=== PATIENT | female | born 1990 | race Caucasian/White ===

== ENCOUNTER → 2018-04-11 15:00 | Outpatient (CLI) | payer BC, SELFPAY ==
[2018-04-11 15:06] LABS: Adenovirus F 40/41, stool Not Detected (NotDetected); Astrovirus Not Detected (NotDetected); Campylobacter Not Detected (NotDetected); Clostridium Difficile A/B, PCR Not Detected (NotDetected); Cryptosporidium Not Detected (NotDetected); Cyclospora Cayetanesis Not Detected (NotDetected); Entamoeba histolytica Not Detected (NotDetected); Enteroaggregative E coli Not Detected (NotDetected); Enteropathogenic E coli Not Detected (NotDetected); Enterotoxigenic E coli Not Detected (NotDetected); Giardia lamblia Not Detected (NotDetected); Norovirus Not Detected (NotDetected); Plesimonas Shigalloides, PCR Not Detected (NotDetected); Salmonella, PCR Not Detected (NotDetected); Sapovirus Not Detected (NotDetected); Shiga-like toxin E coli Not Detected (NotDetected); Shigella Enterovasive E coli Not Detected (NotDetected); Vibrio Cholerae Not Detected (NotDetected); Vibrio, PCR Not Detected (NotDetected); Yersinia Entercolitica, PCR Not Detected (NotDetected)
[2018-04-11 18:41] LABS: Rotavirus A Detected (NotDetected)
== END ==
PROVIDERS: Visit Provider Emergency Medicine
DX: R19.7 Diarrhea, unspecified (principal)
CPT/HCPCS: 87507

== ENCOUNTER → 2019-12-24 11:22 | Outpatient (CLI) | payer BC, SELFPAY ==
[2019-12-24 12:06] LABS: Basophils # 0.1 K/mm3 (0-0.2); Basophils % 0.4 % (0.1-2.0); Eosinophils # 0.1 K/mm3 (0.0-0.4); Eosinophils % 1.1 % (0.1-12.0); Hematocrit 38.5 % (37.0-47.0); Hemoglobin 12.7 g/dL (12.2-16.2); Lymphocytes # 3.6 K/mm3 (0.7-4.5); Lymphocytes % 34.2 % (10-50); Mean Corpuscular Volume 87.9 fl (81-99); Mean Platelet Volume 8.4 fl (7.4-10.4); Monocytes # 0.5 K/mm3 (0.1-1.0); Monocytes % 5.1 % (1.7-9.3); Neutrophils # 6.2 K/mm3 (1.8-7.8); Neutrophils % 59.2 % (37.0-80.0); Platelet Count 269 K/mm3 (142-424); Red Blood Count 4.38 M/mm3 (4.20-5.40); Red Cell Distribution Width 13.7 % (11.5-17.5); White Blood Count 10.5 K/mm3 (4.8-10.8)
== END ==
PROVIDERS: PCP Family Medicine; Visit Provider Physician Assistant
DX: Z03.818 Encounter for observation for suspected exposure to other biological agents ruled out (principal)
CPT/HCPCS: 36415; 85025; U0003

== ENCOUNTER → 2021-04-19 16:19 | Outpatient (CLI) | payer BC, SELFPAY ==
[2021-04-19 17:01] LABS: Adenovirus,PCR Not Detected (NotDetected); Bordetella Pertussis Not Detected (NotDetected); Chlamydophila Pneumoniae, PCR Not Detected (NotDetected); Coronavirus 19, PCR Not Detected (NotDetected); Coronavirus 229E Not Detected (NotDetected); Coronavirus NL63 Not Detected (NotDetected); Coronavirus OC43 Not Detected (NotDetected); Coronovirus HKU1,PCR Not Detected (NotDetected); Human Metapneumovirus Not Detected (NotDetected); Influenza A, PCR Not Detected (NotDetected); Influenza AH1, 2009 Not Detected (NotDetected); Influenza AH1, PCR Not Detected (NotDetected); Influenza AH3,PCR Not Detected (NotDetected); Influenza B, PCR Not Detected (NotDetected); Mycoplasma Pneumoniae, PCR Not Detected (NotDetected); Parainfluenza 1, PCR Not Detected (NotDetected); Parainfluenza 2, PCR Not Detected (NotDetected); Parainfluenza 3, PCR Not Detected (NotDetected); Parainfluenza 4, PCR Not Detected (NotDetected); Respiratory Syncytial Virus Not Detected (NotDetected); Rhinovirus/Enterovirus Not Detected (NotDetected)
[2021-04-19 17:29] LABS: Basophils # 0.1 K/mm3 (0-0.2); Basophils % 0.4 % (0.1-2.0); Eosinophils # 0.1 K/mm3 (0.0-0.4); Eosinophils % 0.6 % (0.1-12.0); Hematocrit 43.2 % (37.0-47.0); Hemoglobin 14.5 g/dL (12.2-16.2); Lymphocytes # 2.8 K/mm3 (0.7-4.5); Lymphocytes % 12.5 % (10-50); Mean Corpuscular HGB Conc 33.6 g/dL (31.8-35.4); Mean Corpuscular Hemoglobin 29.7 pg (27.0-31.2); Mean Corpuscular Volume 88.4 fl (81-99); Mean Platelet Volume 8.9 fl (7.4-10.4); Monocytes # 0.6 K/mm3 (0.1-1.0); Monocytes % 2.6 % (1.7-9.3); Neutrophils # 18.6 K/mm3 (1.8-7.8); Neutrophils % 83.8 % (37.0-80.0); Platelet Count 297 K/mm3 (142-424); Red Blood Count 4.89 M/mm3 (4.20-5.40); Red Cell Distribution Width 13.5 % (11.5-17.5); White Blood Count 22.1 K/mm3 (4.8-10.8)
[2021-04-19 17:34] LABS: MANUAL DIFFERENTIAL MANUAL DIFFERENTIAL (MANUAL DIFF)
[2021-04-19 20:44] LABS: Eosinophils % 1 % (0-3); Lymphocytes % 15 % (10-50); Monocytes % 5 % (2-9); Neutrophils % 77 % (42-76); Platelet Estimate Normal; Total Cells Counted 100
== END ==
PROVIDERS: PCP Nurse Practitioner Family; Visit Provider Physician Assistant
DX: Z20.822 Contact with and (suspected) exposure to COVID-19 (principal); D72.829 Elevated white blood cell count, unspecified
CPT/HCPCS: 36415; 85007; 85025; 87581; 87632; 87798; C9803; U0003; U0005

== ENCOUNTER 2021-05-24 08:58 | Emergency (ER) | payer BC, SELFPAY ==
[2021-05-24 09:05] VITALS: BP 112/66; PULSE 77; RESP 14; TEMP 37.1; O2SAT 99; BMI 36.3
[2021-05-24 09:14] VITALS: BP 122/66; PULSE 77; RESP 16; TEMP 37.1
--- NOTE | 2021-05-24 09:15 | HMH.EDUTC ---
[facility] [place] Clinical Impression: Strep throat Disposition: Home, Self-Care Condition on Discharge: Good Instructions: Sore Throat, Strep Throat (Alternative Therapy) Additional Instructions: *Monitor Temp, Over the counter Motrin or Tylenol as directed/as needed Tylenol every 4 hours and Motrin every 6 hours (as long as your family doctor has told you that you can take it) for fever or pain. and straight to ER if unable to lower temp less than 101.0 after medication given *Warm salt water gargles may help to soothe the throat *Throat Lozenges *Warm fluids like tea with honey may help to soothe the throat *Sleep elevated *Humidifier/Vaporizer *If you did not take Penicillin shot or was unable to, start taking antibiotic immediately and make sure that you take it for the FULL length of time although you should start to feel better in 24-48 hours *change toothbrush and toothpaste 24-48 hours after starting to take antibiotics so you do not reinfect yourself Monitor Temp. Tylenol and/or Ibuprofen as needed. ER if fever is no less than 101 despite alternating Tylenol and Ibuprofen * Encourage fluids, water, Gatorade, powerade, pedialyte if /toddler/or child *Cold fluids, popsicles and ice cream may feel good on his throat Follow up IMMEDIATELY for new or worsening symptoms or no Noticeable improvement over the next 48-72 hours. 911 for difficulty breathing or swallowing You were tested for today for COVID19 your test result should be back in the next 24-48 hours, you may check your results on the [facility] My Health Portal if you have trouble logging on you may call support to help you You was given a handout with instructions for Self Quarantine and Self isolation for while you wait on test results and what to do if they are positive If you are positive the Health Dept will be contacting you also Make sure to take your Vitamins Vit. C Vit D and Zinc if you can take them Prescriptions: Amoxicillin [Amoxicillin 875MG Tab] 875 mg PO Q12H #20 tab Transmission Status: Pending to [id number] Referrals: Tristen Stringer MD [Primary Care Provider] - Forms: Work/School Release Medical Decision Making - Stephen Inquiry Pt receiving controlled substance: No Stephen was queried for this patient: No Vital Signs: 05/24/21 09:05 Temperature 98.7 F Temperature Source Oral Pulse Rate [Left] 77 Respiratory Rate 14 Blood Pressure [Right Arm] 112/66 Blood Pressure Mean [Right Arm] 81 02 Sat by Pulse Oximetry 99 - Lab Data Lab results reviewed: Yes: I reviewed the patient's lab results. Medical Decision Narrative: Patient state that she is allergic to Cefaclor but has taken amoxicillin in the past without reactions or complications [facility] [place] - General Stated complaint: sore throat, cough, BENAVIDES Time Seen by Provider: 05/24/21 09:15 Mode of Arrival: Ambulatory Source of Information: Patient Limitations: No Limitations Description of Symptoms (Recalled from Triage Doc. by RN): pt c/o fatigue, scratchy throat, BENAVIDES, sneezing, and a sore neck. pt states her daughter had strep last week. HEENT Symptoms (Recalled from RN notes): Yes Resp Symptoms (Recalled from RN notes): No Skin Symptoms (Recalled from RN notes): No MS Symptoms (Recalled from RN notes): No Functional Status (Recalled from RN notes): wnl - History of Present Illness Provider Complaint: Patient state that she has been feeling tired and achy along with runny nose and scratchy throat State that daughter had strep throat last week so she came in to get checked out - Related Data Home Medications Medication Instructions Recorded Confirmed Fluoxetine HCl [Prozac 20mg 20 mg PO DAILY 04/10/18 04/10/18 Capsule] Levocetirizine Dihydrochloride 5 mg PO DAILY 04/10/18 04/10/18 [Xyzal] desogestreL-ethinyl estradioL 1 tab PO DAILY 04/10/18 04/10/18 [Enskyce 28 Tablet] Previous Rx's Medication Instructions Recorded Loperamide HCl [
[2021-05-24 09:35] LABS: UTC Strep Screen (Rapid) Positive (Negative)
== END 2021-05-24 09:49 | disposition home or self-care (01) ==
PROVIDERS: Emergency Provider Nurse Practitioner; PCP Family Medicine
DX: J02.0 Streptococcal pharyngitis (principal)
CPT/HCPCS: 87880; 99203; C9803; G0463; U0003; U0005

== ENCOUNTER → 2021-05-29 13:03 | Outpatient (CLI) | payer BC, SELFPAY | PROVIDERS: PCP Family Medicine; Visit Provider Family Medicine | DX: U07.1 COVID-19 (principal) | CPT/HCPCS: C9803; U0003; U0005 ==

== ENCOUNTER 2021-06-08 09:02 | Emergency (ER) | payer BC, SELFPAY ==
[2021-06-08 09:10] VITALS: BP 115/79; PULSE 74; RESP 18; TEMP 36.4; O2SAT 97; BMI 37.1
--- NOTE | 2021-06-08 09:33 | HMH.EDUTC ---
[facility] [place] Disposition Clinical Impression: Rash Disposition: Home, Self-Care Condition on Discharge: Good Instructions: DI for Rash, Hydroxyzine Additional Instructions: Oatmeal baths may help with rash and itching Over the counter pepcid may help with rash Continue to take medrol dose pack Return if needed Straight to ER if any life threatening symptoms Follow up with Family Doctor if symptoms continue or worsen Prescriptions: hydrOXYzine HCL [Hydroxyzine HCl] 25 mg PO Q8HP PRN #15 tab PRN Reason: Itching Transmission Status: Pending to [id number] Referrals: Tristen Stringer MD [Primary Care Provider] - Time of Disposition: 09:53 Medical Decision Making - Stephen Inquiry Pt receiving controlled substance: No Stephen was queried for this patient: No Vital Signs: 06/08/21 09:10 Temperature 97.5 F L Temperature Source Oral Pulse Rate [Right Brachial] 74 Respiratory Rate 18 Blood Pressure [Right Arm] 115/79 Blood Pressure Mean [Right Arm] 91 Blood Pressure Source [Right Arm] Automatic Cuff Blood Pressure Position [Right Arm] Sitting 02 Sat by Pulse Oximetry 97 Oxygen Delivery Method Room Air - Lab Data Lab results reviewed: Yes: I reviewed the patient's lab results. Lab Results 06/08/21 09:29: Tst Clinic Negative [facility] [place] HPI - General Stated complaint: rash Time Seen by Provider: 06/08/21 09:33 Mode of Arrival: Ambulatory Source of Information: Patient Limitations: No Limitations Description of Symptoms (Recalled from Triage Doc. by RN): PATIENT C/O ITCHY, RED RASH ALL OVER BODY X 2 DAYS. SHE STATES THE ITCHINESS HAS CAUSED HER NOT TO SLEEP WELL. SHE IS CURRENTLY ON THIRD DAY OF STEROID PACK PRESCRIBED BY HER PCP. SHE WAS DIAGNOSED WITH COVID LAST SATURDAY, BUT STATES ALL OF HER SYMPTOMS HAVE SUBSIDED HEENT Symptoms (Recalled from RN notes): No Resp Symptoms (Recalled from RN notes): No Skin Symptoms (Recalled from RN notes): Yes MS Symptoms (Recalled from RN notes): No Functional Status (Recalled from RN notes): WNL - History of Present Illness Provider Complaint: Patient states that she had COVID last week States that she has been having rash all over her body States that she had a telehealth visit with her PCP and they prescribed her a medrol pack and it has helped some but she is still having itching and rash returns in the evenings so she came in today to see if they could get something else to help - Related Data Home Medications Medication Instructions Recorded Confirmed Fluoxetine HCl [Prozac 20mg 20 mg PO DAILY 04/10/18 04/10/18 Capsule] Levocetirizine Dihydrochloride 5 mg PO DAILY 04/10/18 04/10/18 [Xyzal] desogestreL-ethinyl estradioL 1 tab PO DAILY 04/10/18 04/10/18 [Enskyce 28 Tablet] Sertraline HCl 100 mg PO DAILY 06/08/21 06/08/21 Previous Rx's Medication Instructions Recorded Loperamide HCl [Loperamide] 2 mg PO TID PRN #4 tab 04/10/18 Amoxicillin [Amoxicillin 875MG 875 mg PO Q12H #20 tab 05/24/21 Tab] hydrOXYzine HCL [Hydroxyzine HCl] 25 mg PO Q8HP PRN #15 tab 06/08/21 Allergies Allergy/AdvReac Type Severity Reaction Status Date / Time cefaclor [From Ceclor] Allergy Intermediate Verified 04/10/18 12:17 - Worker's Comp Is this a Worker's Comp case?: No H History - Hepatitis A Screen Drug use history?: No High risk sexual behaviors?: No History of sexually transmitted infection?: No Currently employed?: No Childcare worker?: No Do you have indoor plumbing?: Yes Do you have electricity?: Yes Attestation statement:: This patient has been screened for Hepatitis A risk factors. I have reviewed the patient's past medical history: Yes Laterality Cases: Bilateral: Myringotomy (Ear Tubes), Tonsillectomy - Social History Alcohol Intake: never Occupational Status: other ROS Obtained: Yes All systems reviewed & no additional complaints, Yes Systems reviewed as appropriate & no additional complaints - Constitu
[2021-06-08 09:41] LABS: UTC Pregnancy Test, Urine Negative (Negative)
[2021-06-08 09:57] VITALS: BP 115/79; PULSE 74; RESP 18; TEMP 36.4; O2SAT 97
== END 2021-06-08 10:03 | disposition home or self-care (01) ==
PROVIDERS: Emergency Provider Nurse Practitioner; PCP Family Medicine
DX: R21 Rash and other nonspecific skin eruption (principal); Z86.16 Personal history of COVID-19
CPT/HCPCS: 81025; 99202; G0463

== ENCOUNTER → 2021-06-21 11:57 | Outpatient (CLI) | payer BC, SELFPAY ==
[2021-06-21 14:30] LABS: Basophils % 0.3 % (0.1-2.0); Eosinophils # 0.1 K/mm3 (0.0-0.4); Eosinophils % 0.9 % (0.1-12.0); Hematocrit 41.1 % (37.0-47.0); Lymphocytes # 2.6 K/mm3 (0.7-4.5); Lymphocytes % 24.6 % (10-50); Mean Corpuscular HGB Conc 31.6 g/dL (31.8-35.4); Mean Corpuscular Hemoglobin 29.6 pg (27.0-31.2); Mean Corpuscular Volume 93.5 fl (81-99); Monocytes # 0.5 K/mm3 (0.1-1.0); Monocytes % 4.6 % (1.7-9.3); Neutrophils # 7.5 K/mm3 (1.8-7.8); Neutrophils % 69.7 % (37.0-80.0); Platelet Count 312 K/mm3 (142-424); Red Blood Count 4.39 M/mm3 (4.20-5.40); Red Cell Distribution Width 13.6 % (11.5-17.5); White Blood Count 10.7 K/mm3 (4.8-10.8)
[2021-06-21 16:54] LABS: Strep Scrn Group A (Rapid) Negative (Negative)
== END ==
PROVIDERS: PCP Family Medicine; Visit Provider Physician Assistant
DX: J02.9 Acute pharyngitis, unspecified (principal)
CPT/HCPCS: 36415; 85025; 87430

== ENCOUNTER → 2021-09-19 08:06 | Outpatient (POV) | payer BC, SELFPAY | PROVIDERS: Visit Provider Dermatology | DX: Z00.00 Encounter for general adult medical examination without abnormal findings (principal) ==

== ENCOUNTER 2021-09-19 11:19 | Emergency (ER) | payer BC, SELFPAY ==
[2021-09-19 12:29] VITALS: BP 109/73; PULSE 71; RESP 18; TEMP 36.8; O2SAT 98; BMI 39.3
[2021-09-19 12:45] LABS: Strep Scrn Group A (Rapid) Negative (Negative)
--- NOTE | 2021-09-19 13:45 | HMH.EDUTC ---
[facility] [place] Clinical Impression: Sinusitis Qualifiers: Sinusitis location: unspecified location Chronicity: acute Recurrence: non-recurrent Qualified Code(s): J01.90 - Acute sinusitis, unspecified Acute bronchitis Qualifiers: Bronchitis organism: unspecified organism Qualified Code(s): J20.9 - Acute bronchitis, unspecified Disposition: Home, Self-Care Condition on Discharge: Good Instructions: Acute Bronchitis, DI for Sinusitis Prescriptions: Brompheniramine/Pseudoephed/Dm [Bromfed Dm Cough Syrup] 5 ml PO Q6HP PRN #240 ml PRN Reason: Cough Transmission Status: Received by [facility] Benzonatate [Benzonatate 100mg cap] 100 mg PO TIDP PRN #30 cap PRN Reason: Cough Transmission Status: Received by [facility] methylPREDNISolone [Medrol] 4 mg PO DIRECTED 6 Days #21 packet Transmission Status: Received by [facility] Azithromycin [Z-Tommy 250mg Tab*] 250 mg PO UD DOSE PK #6 tab Transmission Status: Received by [facility] Referrals: Tristen Stringer MD [Primary Care Provider] - Forms: Work/School Release Time of Disposition: 13:50 Medical Decision Making - Medical Records Medical records reviewed: No: I reviewed the patient's medical records. - Stephen Inquiry Pt receiving controlled substance: No Vital Signs: 09/19/21 12:29 09/19/21 14:03 Temperature 98.3 F 98.3 F Temperature Source Oral Pulse Rate 71 Pulse Rate [Radial] 71 Respiratory Rate 18 18 Blood Pressure 109/73 L Blood Pressure [Right Arm] 109/73 L Blood Pressure Mean [Right Arm] 85 02 Sat by Pulse Oximetry 98 - Lab Data Lab results reviewed: Yes: I reviewed the patient's lab results. Lab Results 09/19/21 12:21: Group A Strep Rapid Negative Orders (Tests/Meds): ORDERS Category Date Time Status Strep Screen Confirmation Stat Micro 09/19/21 12:21 Received [facility] [place] HPI - General Stated complaint: sore throat, congestion, cough Time Seen by Provider: 09/19/21 12:45 Mode of Arrival: Ambulatory Source of Information: Patient Limitations: No Limitations Description of Symptoms (Recalled from Triage Doc. by RN): pt c/o sore throat, congestion, and sneezing. for 2 days HEENT Symptoms (Recalled from RN notes): Yes Resp Symptoms (Recalled from RN notes): Yes Skin Symptoms (Recalled from RN notes): No MS Symptoms (Recalled from RN notes): No Functional Status (Recalled from RN notes): wnl - History of Present Illness Provider Complaint: She c/o cough, chest congestion, sinus congestion for the past 2 days. - Related Data Home Medications Medication Instructions Recorded Confirmed Fluoxetine HCl [Prozac 20mg 20 mg PO DAILY 04/10/18 04/10/18 Capsule] Levocetirizine Dihydrochloride 5 mg PO DAILY 04/10/18 04/10/18 [Xyzal] desogestreL-ethinyl estradioL 1 tab PO DAILY 04/10/18 04/10/18 [Enskyce 28 Tablet] Sertraline HCl 100 mg PO DAILY 06/08/21 06/08/21 Previous Rx's Medication Instructions Recorded Loperamide HCl [Loperamide] 2 mg PO TID PRN #4 tab 04/10/18 Amoxicillin [Amoxicillin 875MG 875 mg PO Q12H #20 tab 05/24/21 Tab] hydrOXYzine HCL [Hydroxyzine HCl] 25 mg PO Q8HP PRN #15 tab 06/08/21 Azithromycin [Z-Tommy 250mg Tab*] 250 mg PO UD DOSE PK #6 tab 09/19/21 Benzonatate [Benzonatate 100mg 100 mg PO TIDP PRN #30 cap 09/19/21 cap] Brompheniramine/Pseudoephed/Dm 5 ml PO Q6HP PRN #240 ml 09/19/21 [Bromfed Dm Cough Syrup] methylPREDNISolone [Medrol] 4 mg PO DIRECTED 6 Days #21 09/19/21 packet Allergies Allergy/AdvReac Type Severity Reaction Status Date / Time [facility]aclor [facility] Allergy Intermediate Verified 04/10/18 12:17 - Worker's Comp Is this a Worker's Comp case?: No [facility] History - Hepatitis A Screen Attestation statement:: This patient has been screened for Hepatitis A risk factors. I have reviewed the patient's past medical history: Yes Laterality Cases: Bilateral: Myringotomy (Ear Tubes), Tonsillec
[2021-09-19 14:03] VITALS: BP 109/73; PULSE 71; RESP 18; TEMP 36.8
== END 2021-09-19 14:05 | disposition home or self-care (01) ==
PROVIDERS: Emergency Provider Nurse Practitioner Family; PCP Family Medicine
DX: J01.90 Acute sinusitis, unspecified (principal); J02.9 Acute pharyngitis, unspecified; Z79.52 Long term (current) use of systemic steroids; Z79.899 Other long term (current) drug therapy; Z88.8 Allergy status to other drugs, medicaments and biological substances
CPT/HCPCS: 87430; 99213; G0463

== ENCOUNTER 2021-12-30 09:48 | Emergency (ER) | payer BC, SELFPAY ==
[2021-12-30 10:40] VITALS: BP 116/72; PULSE 84; RESP 19; TEMP 36.9; O2SAT 98; BMI 35.9
[2021-12-30 10:57] VITALS: BP 116/72; PULSE 84; RESP 19; TEMP 36.9; O2SAT 98
[2021-12-30 10:59] LABS: UTC Strep Screen (Rapid) Negative (Negative)
--- NOTE | 2021-12-30 11:00 | HMH.EDUTC ---
[facility] [place] Clinical Impression: Strep throat Disposition: Home, Self-Care Condition on Discharge: Good Instructions: DI for Strep Throat Additional Instructions: Start antibiotics today be sure to take it as ordered with the full length of time although you should start feeling better in 24-48 hours. Change toothbrush and toothpaste 24-48 hours after starting antibiotics Tylenol or Motrin as needed for fever or pain Encourage fluids, water, Gatorade, Powerade, try cold fluids, popsicles, ice cream will make it feel better You are contagious for 24 hours. Avoid kissing anyone, no eating or drinking after anyone. You are contagious. Follow-up the ER for new or worsening symptoms or no noticeable improvement over the next 24-48 hours. Follow-up with PCP this week. Prescriptions: Azithromycin [Zithromax 250mg tab] 250 mg PO DIRECTED #6 tab Transmission Status: Pending to [facility] Referrals: Tristen Stringer MD [Primary Care Provider] - Time of Disposition: 11:03 Medical Decision Making - Stephen Inquiry Pt receiving controlled substance: No Vital Signs: 12/30/21 10:40 12/30/21 10:57 Temperature 98.5 F 98.5 F Temperature Source Oral Pulse Rate 84 Pulse Rate [Right] 84 Respiratory Rate 19 19 Blood Pressure 116/72 Blood Pressure [Right Arm] 116/72 Blood Pressure Mean [Right Arm] 86 Blood Pressure Source [Right Arm] Automatic Cuff Blood Pressure Position [Right Arm] Sitting 02 Sat by Pulse Oximetry 98 Oxygen Delivery Method Room Air - Lab Data Lab Results 12/30/21 10:44: Strep Scn Rapid Clinic Negative Orders (Tests/Meds): ORDERS Category Date Time Status Strep Screen Confirmation Stat Micro 12/30/21 10:44 Received [facility] [place] - General Chief complaint: Ur[facility] Stated complaint: Sore throat, congestion, drainage Time Seen by Provider: 12/30/21 11:00 Mode of Arrival: Ambulatory Source of Information: Patient Limitations: No Limitations Description of Symptoms (Recalled from Triage Doc. by RN): PATIENT C/O SORE THROAT, FATIGUE AND HEADACHE SINCE THIS MORNING HEENT Symptoms (Recalled from RN notes): Yes Resp Symptoms (Recalled from RN notes): No Skin Symptoms (Recalled from RN notes): No MS Symptoms (Recalled from RN notes): No Functional Status (Recalled from RN notes): WNL - History of Present Illness Provider Complaint: 5 yr old female presents for fever,sore throat,nausea and headache since this am. daughter + for strep - Related Data Home Medications Medication Instructions Recorded Confirmed Fluoxetine HCl [Prozac 20mg 20 mg PO DAILY 04/10/18 04/10/18 Capsule] Levocetirizine Dihydrochloride 5 mg PO DAILY 04/10/18 04/10/18 [Xyzal] desogestreL-ethinyl estradioL 1 tab PO DAILY 04/10/18 04/10/18 [Enskyce 28 Tablet] Sertraline HCl 100 mg PO DAILY 06/08/21 06/08/21 Previous Rx's Medication Instructions Recorded Loperamide HCl [Loperamide] 2 mg PO TID PRN #4 tab 04/10/18 Amoxicillin [Amoxicillin 875MG 875 mg PO Q12H #20 tab 05/24/21 Tab] hydrOXYzine HCL [Hydroxyzine HCl] 25 mg PO Q8HP PRN #15 tab 06/08/21 Azithromycin [Z-Tommy 250mg Tab*] 250 mg PO UD DOSE PK #6 tab 09/19/21 Benzonatate [Benzonatate 100mg 100 mg PO TIDP PRN #30 cap 09/19/21 cap] Brompheniramine/Pseudoephed/Dm 5 ml PO Q6HP PRN #240 ml 09/19/21 [Bromfed Dm Cough Syrup] methylPREDNISolone [Medrol] 4 mg PO DIRECTED 6 Days #21 09/19/21 packet Azithromycin [Zithromax 250mg 250 mg PO DIRECTED #6 tab 12/30/21 tab] Allergies Allergy/AdvReac Type Severity Reaction Status Date / Time cefaclor [From Ceclor] Allergy Intermediate Verified 04/10/18 12:17 loracarbef [From Lorabid] Allergy Verified 12/30/21 10:56 - Worker's Comp Is this a Worker's Comp case?: No [facility] History - Hepatitis A Screen Attestation statement:: This patient has been screened for Hepatitis A risk factors. I have reviewed the p
== END 2021-12-30 11:13 | disposition home or self-care (01) ==
PROVIDERS: Emergency Provider Nurse Practitioner Family; PCP Family Medicine
DX: J02.0 Streptococcal pharyngitis (principal)
CPT/HCPCS: 87880; 99212; G0463

== ENCOUNTER 2022-02-25 09:27 | Emergency (ER) | payer BC, SELFPAY ==
[2022-02-25 09:30] VITALS: BP 102/63; PULSE 77; RESP 20; TEMP 36.7; O2SAT 95; BMI 35.9
--- NOTE | 2022-02-25 09:48 | EXP.UTC ---
Discharge Plan Disposition Patient Disposition: Home, Self-Care Condition: Good Referrals Follow up/Referrals: Tristen Stringer MD [Primary Care Provider] - See instructions Activity Restrictions/Add. Instructions Additional Instructions/Restrictions: *Monitor Temp, Over the counter Tylenol as directed/as needed Tylenol every 4 hours (as long as your family doctor has told you that you can take it) for fever or pain. and straight to ER if unable to lower temp less than 101.0 after medication given *Warm salt water gargles may help to soothe the throat *Throat Lozenges? *Warm fluids like tea with honey may help to soothe the throat? *Sleep elevated *Humidifier/Vaporizer *Flonase 2 sprays in each nostril daily but be aware that it may take 2-3 days before you notice improvement Make sure to discuss Over the counter options for nasal congestion that is safe for use during with the pharmacy prior to taking Your throat swab was sent for culture. Those results are typically sent to your primary care. Be sure to follow up in 2-3 days with your family doctor/primary care physician if no improvement so they can review those result and treat if necessary. If you don?t have a primary care doctor, I recommend you get one but in the mean time, you will have to return to a walk in clinic Follow up IMMEDIATELY for new or worsening symptoms or no Noticeable improvement over the next 48-72 hours. 911 for difficulty breathing or swallowing Clinical Impressions Clinical Impression: Viral upper respiratory tract infection with cough Instructions Patient Instructions: Cough, DI for Viral Upper Respiratory Infection -- Adult Discharge ED Provider: Aracelis Corona [facility] [place] General Stated complaint: Sore throat, stuff nose, congestion, cough, BENAVIDES Mode of Arrival: Ambulatory Source of Information: Patient Limitations: No Limitations Time Seen by Provider: 02/25/22 09:48 Description of Symptoms (Recalled from Triage Doc. by RN): PATIENT C/O SORE THROAT, COUGH, HEADACHE, CONGESTION, AND NASAL DRAINAGE SINCE SATURDAY. REPORTS RECEIVING FLU VACCINE ON SATURDAY HEENT Symptoms (Recalled from RN notes): Yes Resp Symptoms (Recalled from RN notes): Yes Skin Symptoms (Recalled from RN notes): No MS Symptoms (Recalled from RN notes): No Functional Status (Recalled from RN notes): WNL History of Present Illness Provider Complaint: Patient states that she took flu vaccine on Sat and woke up not feeling well States that she has been having bodyaches, sore throat, nasal congestion and cough States that she is 5mth OB and not sure what she could take for it Related Data Allergies Allergy/AdvReac Type Severity Reaction Status Date / Time cefaclor [From Ceclor] Allergy Intermediate Verified 04/10/18 12:17 loracarbef [From Lorabid] Allergy Verified 12/30/21 10:56 Worker's Comp Is this a Worker's Comp case?: No PFSH PFSH Medical History (Updated 02/25/22 @ 09:52 by Aracelis Corona APRN) Anxiety Hyperlipidemia Surgical History (Updated 02/25/22 @ 09:45 by Adela Laura RN) History of tonsillectomy History of tympanostomy tube placement Social History (Updated 02/25/22 @ 09:46 by Adela Laura RN) Smoking Status: Unknown if ever smoked alcohol intake: never current occupational status: other Travel in the last 8 weeks: None ROS Obtained: Yes All systems reviewed & no additional complaints except as documented and Yes Systems reviewed as appropriate & no additional complaints except as documented Constitutional Constitutional: Reports system reviewed and no additional complaints, except as documented, Reports as per HPI and Reports body ache ENT Ears, Nose, Mouth, and Throat: Reports system reviewed and no additional complaints, except as documented, Reports as per HPI, Reports nasal congestion, Reports nasal discharge and Reports sore throat Cardiovascular Cardiovascular: Repor
[2022-02-25 09:49] LABS: UTC Strep Screen (Rapid) Negative (Negative)
[2022-02-25 09:50] VITALS: BP 102/63; PULSE 77; RESP 20; TEMP 36.7; O2SAT 95
[2022-02-25 10:03] LABS: Adenovirus,PCR Not Detected (NotDetected); Bordetella Pertussis Not Detected (NotDetected); Chlamydophila Pneumoniae, PCR Not Detected (NotDetected); Coronavirus 19, PCR Not Detected (NotDetected); Coronavirus 229E Not Detected (NotDetected); Coronavirus NL63 Not Detected (NotDetected); Coronavirus OC43 Not Detected (NotDetected); Coronovirus HKU1,PCR Not Detected (NotDetected); Human Metapneumovirus Not Detected (NotDetected); Influenza A, PCR Not Detected (NotDetected); Influenza AH1, 2009 Not Detected (NotDetected); Influenza AH1, PCR Not Detected (NotDetected); Influenza AH3,PCR Not Detected (NotDetected); Influenza B, PCR Not Detected (NotDetected); Mycoplasma Pneumoniae, PCR Not Detected (NotDetected); Parainfluenza 1, PCR Not Detected (NotDetected); Parainfluenza 2, PCR Not Detected (NotDetected); Parainfluenza 3, PCR Not Detected (NotDetected); Parainfluenza 4, PCR Not Detected (NotDetected); Respiratory Syncytial Virus Not Detected (NotDetected); Rhinovirus/Enterovirus Not Detected (NotDetected)
== END 2022-02-25 09:59 | disposition home or self-care (01) ==
PROVIDERS: Emergency Provider Nurse Practitioner; PCP Family Medicine
DX: J06.9 Acute upper respiratory infection, unspecified (principal); J02.9 Acute pharyngitis, unspecified; R05.9 Cough, unspecified; R51.9 Headache, unspecified; M79.10 Myalgia, unspecified site; Z20.822 Contact with and (suspected) exposure to COVID-19; E78.5 Hyperlipidemia, unspecified; F41.9 Anxiety disorder, unspecified; Z79.899 Other long term (current) drug therapy
CPT/HCPCS: 87581; 87632; 87798; 87880; 99213; C9803; G0463; U0003; U0005

== ENCOUNTER → 2022-04-24 12:14 | Outpatient (CLI) | payer BC, SELFPAY ==
[2022-04-24 12:45] LABS: Coronavirus 19, PCR Not Detected (NotDetected); Influenza A, PCR Not Detected (NotDetected); Influenza B, PCR Not Detected (NotDetected)
[2022-04-24 12:57] LABS: Basophils # 0.1 K/mm3 (0-0.2); Basophils % 1.1 % (0.1-2.0); Eosinophils # 0.2 K/mm3 (0.0-0.4); Eosinophils % 1.8 % (0.1-12.0); Hematocrit 32.5 % (37.0-47.0); Hemoglobin 11.2 g/dL (12.2-16.2); Lymphocytes # 2.2 K/mm3 (0.7-4.5); Lymphocytes % 18.7 % (10-50); Mean Corpuscular HGB Conc 34.4 g/dL (31.8-35.4); Mean Corpuscular Hemoglobin 31.7 pg (27.0-31.2); Mean Corpuscular Volume 92.1 fl (81-99); Monocytes # 0.5 K/mm3 (0.1-1.0); Monocytes % 3.9 % (1.7-9.3); Neutrophils # 8.6 K/mm3 (1.8-7.8); Neutrophils % 74.5 % (37.0-80.0); Platelet Count 308 K/mm3 (142-424); Red Blood Count 3.53 M/mm3 (4.20-5.40); Red Cell Distribution Width 14.6 % (11.5-17.5); White Blood Count 11.5 K/mm3 (4.8-10.8)
== END ==
PROVIDERS: PCP Family Medicine; Visit Provider Nurse Practitioner Family
DX: Z20.822 Contact with and (suspected) exposure to COVID-19 (principal)
CPT/HCPCS: 36415; 85025; C9803; U0003; U0005

== ENCOUNTER 2023-05-04 08:00 | Emergency (ER) | payer BC, SELFPAY ==
[2023-05-04 08:10] VITALS: BP 117/68; PULSE 76; RESP 20; TEMP 36.9; O2SAT 97; BMI 34.8
[2023-05-04 08:43] LABS: UTC Strep Screen (Rapid) Negative (Negative)
--- NOTE | 2023-05-04 08:51 | EXP.UTC ---
Discharge Plan Disposition Patient Disposition: Home, Self-Care Condition: Good Prescriptions Prescriptions: New svtxouoyvgnmyvl-[id number]-SH [Bromfed DM] 2-30-10 mg/5 mL syrup 10 ml PO Q4-6H PRN (Reason: cold symptoms) Qty: 118 0RF amoxicillin 875 mg tablet 875 mg PO BID 10 Days Qty: 20 0RF No Action fexofenadine [Marisela Allergy] 60 mg Tablet 60 mg PO BID sertraline 100 mg tablet 100 mg PO DAILY Patient Comments: TAKE 1 TABLET BY MOUTH ONCE DAILY Referrals Follow up/Referrals: Sabi Brady PA [Primary Care Provider] - See instructions Clinical Impressions Clinical Impression: Acute upper respiratory infection Instructions Patient Instructions: DI for Viral Upper Respiratory Infection -- Adult Discharge ED Provider: Makayla Rico [facility] General Stated complaint: congestion, headache, low grade fever Mode of Arrival: Ambulatory Source of Information: Patient Limitations: No Limitations Time Seen by Provider: 05/04/23 08:17 Description of Symptoms (Recalled from Triage Doc. by RN): PATIENT C/O SORE THROAT, HEADACHE, LOW-GRADE FEVER, CONGESTION, SNEEZING, AND RUNNY NOSE THAT STARTED EARLIER THIS WEEK HEENT Symptoms (Recalled from RN notes): Yes Resp Symptoms (Recalled from RN notes): Yes Skin Symptoms (Recalled from RN notes): No MS Symptoms (Recalled from RN notes): No Functional Status (Recalled from RN notes): WNL History of Present Illness Provider Complaint: Pt states that for the last week she has had a cough, yellow-green sinus drainage, sore throat, and low grade fever. She has been taking Mucinex. Related Data Home Medications Medication Instructions Recorded Confirmed fexofenadine 60 mg tablet (Marisela 60 mg PO BID 05/04/23 05/04/23 Allergy) sertraline 100 mg tablet 100 mg PO DAILY 05/04/23 05/04/23 Previous Rx's Medication Instructions Recorded amoxicillin 875 mg tablet 875 mg PO BID 10 days #20 tabs 05/04/23 aqspbuarftponzq-rfjjlqtdxqjhqqm-SS 10 ml PO Q4-6H PRN cold symptoms 05/04/23 2 mg-30 mg-10 mg/5 mL oral syrup #118 mL (Bromfed DM) Allergies Allergy/AdvReac Type Severity Reaction Status Date / Time cefaclor [From [facility]] Allergy Intermediate Verified 04/10/18 12:17 loracarbef [From Lorabid] Allergy Verified 12/30/21 10:56 Worker's Comp Is this a Worker's Comp case?: No [facility] Disclaimer: The information contained in this section may have been updated after the patient was seen, as this information can be updated by other users. Medical History (Updated 05/04/23 @ 08:55 by Makayla Rico APRN) Anxiety Hyperlipidemia Surgical History (Updated 02/25/22 @ 09:45 by Adela Laura RN) History of tonsillectomy History of tympanostomy tube placement Social History (Updated 02/25/22 @ 09:46 by Adela Laura RN) Smoking Status: Unknown if ever smoked alcohol intake: never current occupational status: other Travel in the last 8 weeks: None ROS Obtained: Yes All systems reviewed & no additional complaints except as documented Constitutional Constitutional: Reports system reviewed and no additional complaints, except as documented, Reports fever(s) and Reports malaise Eyes Eyes: Reports system reviewed and no additional complaints, except as documented ENT Ears, Nose, Mouth, and Throat: Reports system reviewed and no additional complaints, except as documented, Reports nasal discharge, Reports odynophagia, Reports sinus pressure and Reports sore throat Cardiovascular Cardiovascular: Reports system reviewed and no additional complaints, except as documented Respiratory Respiratory: Reports system reviewed and no additional complaints, except as documented and Reports non-productive cough Gastrointestinal Gastrointestingal: Reports odynophagia Genitourinary Female Genitourinary: Reports system reviewed and no additional complaints, except as documented Musculoskeletal Musculoskeletal: Reports system
[2023-05-04 08:55] VITALS: BP 117/68; PULSE 76; RESP 20; TEMP 36.9; O2SAT 97
== END 2023-05-04 08:57 | disposition home or self-care (01) ==
PROVIDERS: Emergency Provider Nurse Practitioner Family; PCP Physician Assistant
DX: R51.9 Headache, unspecified (principal); J06.9 Acute upper respiratory infection, unspecified; R50.9 Fever, unspecified; R09.81 Nasal congestion; R07.0 Pain in throat; R05.9 Cough, unspecified; R53.81 Other malaise
CPT/HCPCS: 87880; 99212; 99214; G0463

== ENCOUNTER 2024-08-11 16:38 | Outpatient (CLI) | payer BC, SELFPAY ==
[2024-08-11 15:19] LABS: Coronavirus 19, PCR Not Detected (NotDetected); Human Rhinovirus Not Detected (NotDetected); Influenza A, PCR Not Detected (NotDetected); Influenza B, PCR Not Detected (NotDetected); Respiratory Syncytial Virus Not Detected (NotDetected)
== END 2024-08-11 23:59 | disposition home or self-care (01) ==
LOC: LAB.DROPOF 16:38
PROVIDERS: PCP Student in an Organized Health Care Education/Training Program; Visit Provider Student in an Organized Health Care Education/Training Program
DX: R50.9 Fever, unspecified (principal)
CPT/HCPCS: 87631

== ENCOUNTER 2024-11-03 10:54 | Outpatient (CLI) | payer BC, SELFPAY ==
--- OUTSIDE RECORDS SUMMARY | 2024-08-28 05:00 | XMS_ITS ---
[facility] Address [address] [place] [id number] Care Team Providers Care Combine Mechanic Name Role Phone Allen Zarateian Primary Care Provider Sabi Brady Unavailable [phone] Allergies Allergen (clinical drug ingredient) Drug/Non Drug Allergy documented on EMR Reaction Allergy Type Onset Date Status cefaclor Cefaclor Unknown Drug Allergy Active loracarbef Loracarbef Unknown Drug Allergy Activ e Results Component Value Reference Range Notes CBC Fingerstick (in house) Reviewed date:08/28/2024 04:14:29 PM Interpretation: Performing Lab: Notes/Report: wbc 7.5 3.5 - 10 lym 30.4 15 - 50 mid 7.5 2 - 15 gran 62.1 35 - 80 rbc 4.47 3.5 - 5.5 hgb 13.4 11.5 - 16.5 hct 41.2 35 - 55 mcv 92.2 75 - 100 mch 30.0 25 - 35 mchc 32.5 31 - 38 plat 167 100 - 400 REASON FOR VISIT 3 months Medications Medication SIG (Take, Route, Frequency, Duration) Notes Start Date End Date Status Zepbound 2.5 MG/0.5ML 2.5 mg Subcutaneou s once a week 08/28/2024 Active Proctosol HC 2.5 % 1 application Organic Chemistry Teacher ally Twice a day for 30 days 04/13/2024 Active Sertraline HCl 100 MG 1 tablet Orally On ce a day for 90 days Active Aviane 0.1-20 MG-MCG 1 tablet Orally Onc e a day for 28 day(s) Active Flonase Allergy Relief 50 MCG/ACT 1 spray(s) intranasally once a day 12/24/2019 Active Social History Tobacco Use: Social History Observation Description Date Details (start date - stop date) Never Smoker NA - NA CURRENT TOBACCO USE: Question Answer Notes Are you a: never smoker Vital Signs Blood pressure systolic 90 mm Hg 08/29/19 25 Blood pressure diastolic 60 mm Hg 025 Heart Rate 74 /min 08/28/2024 Height 65.25 in 08/28/2024 Weight 177.6 lbs 08/28/2024 BMI 29.32 kg/m2 08/28/2024 Encounters Encounter Location Date Provider Diagnosis [facility] [address] [facility] [address] [facility] [address] [place] [id number] 08/28/2024 Sabi Brady Acute upper respirat ory infection J06.9 ; Encounter for weight management Z76.89 and BMI 29.0-29.9,adult Z68.29 Assessments Encounter Date Diagnosis (ICD Code) Assessment Notes Treatment Notes Treatment Clinical Notes Section Notes 08/28/2024 Acute upper respiratory infection (ICD-10 - J06.9) 08/28/2024 Encounter for weight management (ICD-10 - Z76.89) 08/28/2024 BMI 29.0-29.9,adult (ICD-10 - Z68.29) Plan Of Treatment Medication Medication Name Sig Start Date Stop Date Notes Zepbound 2.5 MG/0.5ML 2.5 mg Subcutaneous once a week 08/11 Next Appt Details Follow Up: 3 Months, Reason: Provider Name:Sabi mejia, 12/16/2024 09:15:00 AM, [address] [facility] [address] [facility], [address], [place], [id number], Progress Notes * RODRIGUEZ FLORENTINOINEDOB:1989 (34 yo F)Acc No.[id number]:08/28/2024 Progress Notes Patient: KACY PEREA Provider: RAINE Russo :1990 A ge:34 Y S ex:Female Date:08/28/2024 Address:[address] [place] [address], [id number] Pcp:Jeovanny Zarate Subjective: * Chief Complaints: * 1 . 3 months. * HPI: H PI: 34 year old female presents with c/o Patient is here today for?Pt is here today for a 3 month check up. She has gained weight since stopping the zepbound.. E NT/respiratory: c/o sore throat. c/o nasal congestion P t sts she has some sinus issues going on today as well. Pt sts she has been taking some OTC Mucinex, but sts it is not helping. c/o headache. * ROS: D ERMATOLOGY: no R le. n o H nikki. G ASTROENTEROLOGY: no N ausea. n o V omiting. n o D iarrhea.? U ROLOGY: no D ifficulty urinating. n o B lood in urine. * Medical History: H yperlipidemia, Allergic Rhinitis. * Hospitalization/Major Diagno stic Procedure: Gayathri willson [facility] 06/08/2022. * Family History: F ather: alive 60 yrs, family history unknown . M other: alive 54 yrs, diagnosed with Heart Disease. C tashien: alive 8 yrs. P aternal Grand Father: family history unknown . P aternal Grand Mother: family history unknown . M aternal Grand Mother: diagnosed with Heart Disease, Stroke. P aternal uncle: family history unknown . P aternal aunt: family history unknown . M aternal aunt: diagnosed with Diabetes. 1 daughter(s) - healthy. . * Social History: C URRENT TOBACCO USE A re you a: n ever smoker. C affeine: yes, frequency:4 cups daily, coffee and soft drinks. * Medications: T aking Aviane 0.1-20 MG-MCG Tablet 1 tablet Orally Once a day , Taking Flonase Allergy Relief 50 MCG/ACT Suspension 1 spray(s) intranasally once a day , Taking Proctosol HC 2.5 % Cream 1 application Externally Twice a day , Taking Sertraline HCl 100 MG Tablet 1 tablet Orally Once a day , Medication List reviewed and reconciled with the patient * Allergies: C efaclor, Loracarbef. Objective: * Vitals: W t: 177.6, Temp: 98.4, BP: 90/60, HR: 74, Nurse: ronna, Ht: 65.25, BMI:29.32. * Examination: E NT/Respiratory: General Appearance: N AD. Ears: a uditory canals normal bilaterally, TM's WNL. Nose : turbinates red, congested. Sinuses : tender maxillary sinuses bilaterally. Oral cavity : erythema without exudate on pharynx. Neck : n o cervical lymphadenopathy. Heart : R RR, normal S1 S2, no murmurs. Lungs: c lear to auscultation bilaterally. Assessment: * Assessment: 1. A cute upper respiratory infection - J06.9 (Primary) 2 . E ncounter for weight management - Z76.89 3 . B SC 29.0-29.9,adult - Z68.29 Plan: * Treatment: Value Reference Range w bc 7.5 3.5 - 10 * l ym 30.4 15 - 50 * m id 7.5 2 - 15 * g ran 62.1 35 - 80 * r bc 4.47 3.5 - 5.5 * h gb 13.4 11.5 - 16.5 * h ct 41.2 35 - 55 * m cv 92.2 75 - 100 * m ch 30.0 25 - 35 * m chc 32.5 31 - 38 * p lat 167 100 - 400 * Saima Stanford 08/28/2024 09:2 2:02 AM > Provider reviewed results while patient in office.Sabi Brady 08/28/2024 4:14:25 PM > 2.?BMI 29.0-29.9,adult? Start Zepbound Solution Auto-injector, 2.5 MG/0.5ML, 2.5 mg, Subcutaneous, once a week, 4, Refills 0.?? * Procedure Codes: 3 6416 CAPILLARY BLOOD DRAW, 84768 CBC WITH AUTO DIFF, 3074F SYST BP LT 130 MM HG, 3078F DIAST BP < 80 MM HG * Follow Up: 3 Months * Billing Information: * Visit Code: 68891 Office Visit, Est Pt., Level 3. * Procedure Codes: 71543 CAPILLARY BLOOD DRAW. 67815 CBC WITH AUTO DIFF. 3074F SYST BP LT 130 MM HG. 3078F DIAST BP < 80 MM HG. * Electronic signature of RAINE Wilson on 11/04/2024 at 02:11 PM EDT Sign off status: Pending * Provider: RAINE Russo Date: 0 08/28/2024 Generated for Slava mcneil/Devan/Shauna on: 0 11/04/2024 02:11 PM EDT History and Physical Notes * HPI (History of Present Illness) Category Sub-Category Detail Notes Category Not es ENT/respiratory sore throat headache nasal congestion Pt sts she has some sinus issues going on today as well. Pt sts she has been taking some OTC Mucinex, but sts it is not helping HPI Patient is here today for Pt is here today for a 3 month check up. She has gained weight since stopping the zepbound. Examination Category Sub-Category Detail Notes Category Not es ENT/Respiratory Oral cavity : erythema without exudate on pharynx Sinuses : tender maxillary sin uses bilaterally Ears: auditory canals norm al bilaterally, TM's WNL Neck : no cervical lymphade nopathy Heart : RRR, normal S1 S2, n o murmurs Lungs: clear to auscultatio n bilaterally General Appearance: NAD Nose : turbinates red, elisabet ested
--- OUTSIDE RECORDS SUMMARY | 2024-09-17 09:45 | XMS_ITS ---
[facility] Address [address] [place] [id number] Care Team Providers Care Film Technician Name Role Phone Jeovanny Zarate Primary Care Provider [phone] ApolloSabi bonilla Unavailable [phone] Allergies Allergen (clinical drug ingredient) Drug/Non Drug Allergy documented on EMR Reaction Allergy Type Onset Date Status cefaclor Cefaclor Unknown Drug Allergy Active loracarbef Loracarbef Unknown Drug Allergy Activ e REASON FOR VISIT weight check in Medications Medication SIG (Take, Route, Frequency, Duration) Notes Start Date End Date Status Flonase Allergy Relief 50 MCG/ACT 1 spray(s) intranasally once a day 12/24/2019 Active Proctosol HC 2.5 % 1 application Cosmetic Sales Consultant ally Twice a day for 30 days 04/13/2024 Active Sertraline HCl 100 MG 1 tablet Orally On ce a day for 90 days Active Zepbound 2.5 MG/0.5ML 2.5 mg Subcutaneou s once a week 09/17/2024 Active Zepbound 2.5 MG/0.5ML 2.5 mg Subcutaneou s once a week 08/28/2024 Active Aviane 0.1-20 MG-MCG 1 tablet Orally Onc e a day for 28 day(s) Active Social History Tobacco Use: Social History Observation Description Date Details (start date - stop date) Never Smoker NA - NA CURRENT TOBACCO USE: Question Answer Notes Are you a: never smoker Problems Problem Type SNOMED Code ICD Code Onset Dates Problem Status W/U Status Risk Notes Problem [id number] BMI 33.0-33.9,ad ult (Z68.33) Active confirmed Vital Signs Blood pressure systolic 90 mm Hg 09/18/19 25 Blood pressure diastolic 54 mm Hg 025 Heart Rate 80 /min 09/17/2024 Height 65.25 in 09/17/2024 Weight 203.4 lbs 09/17/2024 BMI 33.58 kg/m2 09/17/2024 Encounters Encounter Location Date Provider Diagnosis [facility] [address] [facility] [address] [facility] [address] [place] [id number] 09/17/2024 Sabi Jose Antonio BMI 33.0-33.9,adult Z68.33 and Encounter for weight management Z76.89 Assessments Encounter Date Diagnosis (ICD Code) Assessment Notes Treatment Notes Treatment Clinical Notes Section Notes 09/17/2024 BMI 33.0-33.9,adult (ICD-10 - Z68.33) 09/17/2024 Encounter for weight management (ICD-10 - Z76.89) Plan Of Treatment Medication Medication Name Sig Start Date Stop Date Notes Zepbound 2.5 MG/0.5ML 2.5 mg Subcutaneous once a week 12/2024 Next Appt Details Follow Up: 3 Months, Reason: Provider Name:Sabi Yuan Hutchison y, 12/16/2024 09:15:00 AM, [address] [facility] 36 [facility], [address], [place], [id number], Progress Notes * RODRIGUEZ FLORENTINOINEDOB:1989 (34 yo F)Acc No.[id number]:09/17/2024 Progress Notes Patient: RODRIGUEZ PEREAINE Provider: RAINE Russo :1990 A ge:34 Y S ex:Female Date:09/17/2024 Address:[address] [place] [address] [place], [id number] Pcp:Jeovanny Zarate Subjective: * Chief Complaints: * 1 . Weight check in. * HPI: H PI: 34 year old female presents with c/o Patient is here today for?Pt here to f/u on Zepbound. She has gained a lot of weight back since stopping the medication.. * ROS: D ERMATOLOGY: no R le. n o H nikki. G ASTROENTEROLOGY: no N ausea. n o V omiting. n o D iarrhea.? U ROLOGY: no D ifficulty urinating. n o B lood in urine. * Medical History: H yperlipidemia, Allergic Rhinitis. * Hospitalization/Major Diagno stic Procedure: Gayathri willson - [facility] 06/08/2022. * Family History: F ather: alive [...] tablet Orally Once a day , Taking Zepbound 2.5 MG/0.5ML Solution Auto-injector 2.5 mg Subcutaneous once a week , Medication List reviewed and reconciled with the patient * Allergies: C efaclor, Loracarbef. Objective: * Vitals: W t:203.4, Temp:98.1, BP:90/54, HR:80, Nurse:kk, Ht: 65.25, BMI:33.58. * Examination: G eneral Examination: General Appearance: N AD. Chest: n ormal shape and expansion. Heart: R SR. Lungs: c lear to auscultation. Assessment: * Assessment: 1. E ncounter for weight management - Z76.89 (Primary) 2 . B VA 33.0-33.9,adult - Z68.33 Plan: * Treatment: * Follow Up: 3 Months * Billing Information: * Visit Code: 85444 Office Visit, Est Pt., Level 3. * Procedure Codes: * Electronic signature of RAINE Wilson on 11/04/2024 at 02:10 PM EDT Sign off status: Pending * Provider: RAINE Russo Date: 0 09/17/2024 Generated for Slava ng/Devan/eTransmitting on: 0 11/04/2024 02:10 PM EDT History and Physical Notes * HPI (History of Present Illness) Category Sub-Category Detail Notes Category Not es HPI Patient is here today for Pt her e to f/u on Zepbound. She has gained a lot of weight back since stopping the medication. Examination Category Sub-Category Detail Notes Category Not es General Examination Heart: RSR Lungs: clear to auscultatio n General Appearance: NAD Chest: normal shape and exp ansion
[2024-11-03 15:42] LABS: Human Rhinovirus Not Detected (NotDetected); Influenza A, PCR Not Detected (NotDetected); Influenza B, PCR Not Detected (NotDetected); Respiratory Syncytial Virus Not Detected (NotDetected)
[2024-11-03 19:53] LABS: Coronavirus 19, PCR Detected (NotDetected)
--- OUTSIDE RECORDS SUMMARY | 2024-11-04 14:11 | XMS_ITS | Patient Health Record ---
[facility] Organization [facility] Address [address] [place] [id number] Care Team Providers Care Mechanics Handyman Name Role Phone Allen Zarateian Primary Care Provider Ninfa Nicole Unavailable [phone] Sabi Brady Unavailable [phone] Allergies Allergen (clinical drug ingredient) Drug/Non Drug Allergy documented on EMR Reaction Allergy Type Onset Date Status cefaclor Cefaclor Unknown Drug Allergy Active loracarbef Loracarbef Unknown Drug Allergy Activ e Results Component Value Reference Range Notes P-Vitamin D 25-Hydroxy Reviewed date:02/28/2024 08:46:51 AM Interpretation: Performing Lab: Notes/Report: Test performed by [facility] [address] [place], [place] [address] , [place] [address] Kirk Hart MD, Health Science Writer CLIA: [id number] Vitamin D 25-Hydroxy 58.2 30.0-100.0 ng/mL Interpretation of Vitamin D 25 OH: < 20 ng/mL - Deficiency 20 - 29 ng/mL - Insufficiency 30 - 100 ng/mL - Sufficiency > 100 ng/mL - Super-therapeutic- toxicity may occur above this level. Clinical correlation required. P-TSH reflex to FT4 Reviewed date:02/28/2024 08:46:51 AM Interpretation: Performing Lab: Notes/Report: Test performed by [facility] [address] [place], [place] [address] , [address], [place] [address] Kirk Hart MD, Health Science Writer CLIA: [id number] TSH reflex to FT4 2.84 0.43-5.25 mU/L P-Lipid Panel Reviewed date:02/28/2024 08:46:51 AM Interpretation: Performing Lab: Notes/Report: Test performed by [facility] [address] [place], [place] [address] Kirk Hart MD, Health Science Writer CLIA: [id number] Cholesterol 127 <200 mg/dL Triglycerides 75 <150 mg/dL HDL Cholesterol 36 >39 mg/dL Cholesterol / HDL Ratio 3.53 0.00-4.44 Ratio Non-HDL Cholesterol 91 <130 mg/dL LDL Cholesterol (Calculation) 76 <130 mg/dL LDL Cholesterol Levels* Less than 100 mg/dL Optimal 100 to 129 mg/dL Near Optimal/ Above Optimal 130 to 159 mg/dL Borderline High 160 to 189 mg/dL High 190 mg/dL and above Very High * Categories as recommended by the 2004 ATPIII guidelines LDL/HDL Ratio 2.1 <3.3 Ratio LDL Cholesterol Patient History Test Date: 08/22/2023 LDL Results: 119 Units: mg/dL % Change: - Test Date: 02/27/2024 LDL Results: 76 Units: mg/dL % Change: -36% P-Iron Reviewed date:02/28/2024 08:46:51 AM Interpretation: Performing Lab: Notes/Report: Test performed by [facility] [address] [place] [address] , [address], [place] [address] Kirk Hart MD, Health Science Writer CLIA: [id number] Iron 72 37-145 ug/dL P-Ferritin Reviewed date:02/28/2024 08:46:51 AM Interpretation: Performing Lab: Notes/Report: Test performed by [facility] [address] [place] [address] , [address], [place] [address] Kirk Hart MD, Health Science Writer CLIA: [id number] Ferritin 150.0 13.0-150.0 ng/mL P-Comprehensive Metabolic Pa aleisha (CMP) Reviewed date:02/28/2024 08:46:51 AM Interpretation: Performing Lab: Notes/Report: Test performed by [facility] [address] [place] [address] , [address], [place] [address] Kirk Hart MD, Health Science Writer CLIA: [id number] Sodium 141 135-145 mmol/L Potassium 5.1 3.5-5.3 mmol/L Chloride 108 97-108 mmol/L CO2 26 22-32 mmol/L Glucose 77 65-99 mg/dL BUN 9 6-20 mg/dL Creatinine 0.78 0.50-1.00 mg/dL Calcium 9.1 8.6-10.4 mg/dL eGFR by Creatinine 102 >59 mL/min/1.73m2 Protein 6.5 6.0-8.3 g/dL Albumin 4.0 3.5-5.3 g/dL Alkaline Phosphatase 70 35-121 IU/L ALT (SGPT) 22 <5-47 IU/L AST (SGOT) 19 <5-40 IU/L Bilirubin, Total 0.3 <0.2-1.2 mg/dL A/G Ratio 1.6 1.1-2.5 P-Vitamin B12 Reviewed date:02/28/2024 08:46:51 AM Interpretation: Performing Lab: Notes/Report: Test performed by [facility] [address] [place] [address] , [address], [place] [address] Kirk Hart MD, Health Science Writer CLIA: [id number] Vitamin B12 307 300-3627 pg/mL CBC Venipuncture (in house) Reviewed date:02/27/2024 12:35:09 PM Interpretation: Performing Lab: Notes/Report: wbc 6.3 3.5 - 10 lymph 33.0 15 - 50 mid 6.0 2 - 15 gran 61.0 35 - 80 rbc 4.15 3.5 - 5.5 hgb 12.7 11.5 - 16.5 hct 37.8 35 - 55 mcv 91.1 75 - 100 mch 30.7 25 - 35 mchc 33.7 31 - 38 platlet 249 100 - 400 Covid test (in house) Reviewed date:04/13/2024 07:18:23 PM Interpretation:neg Performing Lab: Notes/Report: neg Result: neg CBC Fingerstick (in house) Reviewed date:04/13/2024 07:19:23 PM Interpretation: Performing Lab: Notes/Report: wbc 7.2 3.5 - 10 lym 38.2 15 - 50 mid 6.7 2 - 15 gran 55.1 35 - 80 rbc 4.15 3.5 - 5.5 hgb 12.9 11.5 - 16.5 hct 38.9 35 - 55 mcv 93.7 75 - 100 mch 31.2 25 - 35 mchc 33.3 31 - 38 plat 209 100 - 400 Rapid Strep- Inhouse Reviewed date:04/13/2024 07:19:03 PM Interpretation:neg Performing Lab: Notes/Report: neg strep test neg Influenza Screen (in house) Reviewed date:04/13/2024 07:18:45 PM Interpretation:neg Performing Lab: Notes/Report: neg results neg CBC Fingerstick (in house) Reviewed date:08/28/2024 04:14:29 [...] - 38 plat 167 100 - 400 CBC Venipuncture (in house) Reviewed date:05/29/2024 12:28:48 PM Interpretation: Performing Lab: Notes/Report: wbc 6.2 3.5 - 10 lymph 32.0 15 - 50 mid 5.9 2 - 15 gran 62.1 35 - 80 rbc 4.29 3.5 - 5.5 hgb 13.5 11.5 - 16.5 hct 38.9 35 - 55 mcv 90.6 75 - 100 mch 31.6 25 - 35 mchc 34.8 31 - 38 platlet 278 100 - 400 P-Vitamin B12 Reviewed date:05/31/2024 10:04:42 PM Interpretation: Performing Lab: Notes/Report: Test performed by [facility] [address] [place] [address] , [address], [place] [address] Kirk Hart MD, Health Science Writer CLIA: [id number] Vitamin B12 130 990-8034 pg/mL P-Comprehensive Metabolic Pa aleisha (CMP) Reviewed date:05/31/2024 10:04:43 PM Interpretation: Performing Lab: Notes/Report: Test performed by [facility] [address] [place] [address] , [address], [place] [address] Kirk Hart MD, Health Science Writer CLIA: [id number] Sodium 142 135-145 mmol/L Potassium 4.5 3.5-5.3 mmol/L Chloride 107 97-108 mmol/L CO2 27 22-32 mmol/L Glucose 80 65-99 mg/dL BUN 11 6-20 mg/dL Creatinine 0.76 0.50-1.00 mg/dL Calcium 8.9 8.6-10.4 mg/dL eGFR by Creatinine 105 >59 mL/min/1.73m2 Protein 6.8 6.0-8.3 g/dL Albumin 4.2 3.5-5.3 g/dL Alkaline Phosphatase 72 35-121 IU/L ALT (SGPT) 20 <5-47 IU/L AST (SGOT) 18 <5-40 IU/L Bilirubin, Total 0.3 <0.2-1.2 mg/dL A/G Ratio 1.6 1.1-2.5 P-Ferritin Reviewed date:05/31/2024 10:04:43 PM Interpretation: Performing Lab: Notes/Report: Test performed by [facility] [address] , [address], [place] [address] Kirk Hart MD, Health Science Writer CLIA: [id number] Ferritin 93.5 13.0-150.0 ng/mL P-Iron Reviewed date:05/31/2024 10:04:43 PM Interpretation: Performing Lab: Notes/Report: [facility] , [address], [place] [address] Kirk Hart MD, Health Science Writer CLIA: [id number] Iron 41 37-145 ug/dL P-TSH reflex to FT4 Reviewed date:05/31/2024 10:04:43 PM Interpretation: Performing Lab: Notes/Report: [facility] , [address], [place] [address] Kirk Hart MD, Health Science Writer CLIA: [id number] TSH reflex to FT4 2.04 0.43-5.25 mU/L P-Vitamin D 25-Hydroxy Reviewed date:05/31/2024 10:04:43 PM Interpretation: Performing Lab: Notes/Report: Test performed by [facility] [address] , [address], [place] [address] Kirk Hart MD, Health Science Writer CLIA: [id number] Vitamin D 25-Hydroxy 56.9 30.0-100.0 ng/mL Interpretation of Vitamin D 25 OH: < 20 ng/mL - Deficiency 20 - 29 ng/mL - Insufficiency 30 - 100 ng/mL - Sufficiency > 100 ng/mL - Super-therapeutic- toxicity may occur above this level. Clinical correlation required. Rapid Strep- Inhouse Reviewed date:01/15/2024 11:03:19 AM Interpretation:Negative Performing Lab: Notes/Report: Negative strep test Neg CBC Fingerstick (in house) Reviewed date:01/15/2024 11:03:43 AM Interpretation: Performing Lab: Notes/Report: wbc 8.3 3.5 - 10 lym 34.2% 15 - 50 mid 6.4% 2 - 15 gran 59.4% 35 - 80 rbc 4.76 3.5 - 5.5 hgb 14.1 11.5 - 16.5 hct 43.5 35 - 55 mcv 91.2 75 - 100 mch 29.7 25 - 35 mchc 32.6 31 - 38 plat 171 100 - 400 Covid test (in house) Reviewed date:01/22/2024 02:44:30 PM Interpretation: Performing Lab: Notes/Report: Result: Neg Reason For Referral No Information Medications Medication SIG (Take, Route, Frequency, Duration) Notes Start Date End Date Status Aviane 0.1-20 MG-MCG 1 tablet Orally Onc e a day for 28 day(s) Active Flonase Allergy Relief 50 MCG/ACT 1 spray(s) intranasally once a day 12/24/2019 Active Proctosol HC 2.5 % 1 application Parachute Cushion Installer ally Twice a day for 30 days 04/13/2024 Active Sertraline HCl 100 MG 1 tablet Orally On ce a day for 90 days Active Zepbound 2.5 MG/0.5ML 2.5 mg Subcutaneou s once a week 09/17/2024 Active Zepbound 2.5 MG/0.5ML 2.5 mg Subcutaneou s once a week 08/28/2024 Active Immunizations Vaccine Route Administration Date Status Comme nts Fluzone PF Quad (6-35 months) Unknown 02/21/2022 Administered Fluzone Quad (6months&older) IM Intramuscular 02/22/2017 Administered Fluzone Quad (6months&older) Unknown 02/22/2017 Administered Fluzone Quad (6months&older) IM Intramuscular 02/06/2018 Administered Fluzone Quad (6months&older) Unknown 02/06/2018 Administered Fluzone Quad (6months&older) IM Intramuscular 02/26/2023 Administered Fluzone Quad (6months&older) IM Intramuscular 02/27/2024 Administered Tetanus Tdap-Adacel (over 7yrs) Unknown 04/18/2022 Administered Social History Tobacco Use: Social History Observation Description Date Details (start date - stop date) Never Smoker NA - NA CURRENT TOBACCO USE: Question Answer Notes Are you a: never smoker Problems Problem Type SNOMED Code ICD Code Onset Dates Problem Status W/U Status Risk Notes Problem Sinusitis (81062640) Sinusitis (J32.9) Active confirmed Problem Hyperlipidemia (61223087) Hyperlipidemia (E78.5) Active confirmed Problem Menorrhagia (625589019) Menorrhagia (N92.0) Active confirmed Problem Anemia (162325441) Anemia (D64.9) Active confirmed Problem 17153804 Anxiety (F41.9) Active confirmed Problem 097962903 Seasonal allergi es (J30.2) Active confirmed Problem Mixed anxiety and depressive disorder (152125119) Anxiety and depression (F41.8) Active confirmed Problem 297814085 Depression with anxiety (F41.8) Active confirmed Problem 973286696 BMI 33.0-33.9,ad ult (Z68.33) Active confirmed Problem 174400876 Obesity (BMI 30- 39.9) (E66.9) Active confirmed Problem 56305678 Iron deficiency anemia, unspecified iron deficiency anemia type (D50.9) Active confirmed Problem 711781424 BMI 38.0-38.9,ad ult (Z68.38) Active confirmed Problem 946245849 BMI 34.0-34.9,ad ult (Z68.34) Active confirmed Problem 955827152 Pure hypercholesterolemia (E78.00) Active confirmed Vital Signs Heart Rate 80 /min 09/17/2024 Blood pressure diastolic 54 mm Hg 09/17/2024 Height 65.25 in 09/17/2024 Blood pressure systolic 90 mm Hg 09/17/2024 Weight 203.4 lbs 09/17/2024 BMI 33.58 kg/m2 09/17/2024 Encounters Encounter Location Date Provider Diagnosis [facility] [address] [place], [place] [id number] 11/21/2023 Sabi Crowdy Obesity (BMI 30-39.9 ) E66.9 and Seasonal allergies J30.2 [facility] [address] [place], [place] [id number] 01/15/2024 Sabi Crowdy Obesity (BMI 30-39.9 ) E66.9 and Acute URI J06.9 [facility] [address] [place], [place] [id number] 02/27/2024 Sabi Crowdy Other fatigue R53.83 ; Encounter for weight management Z76.89 ; Hyperlipidemia E78.5 ; Anemia D64.9 and Encounter for immunization Z23 [facility] [address] [place], [place] [id number] 04/13/2024 Ninfa Nicole Hemorrhoids K64.9 an d URI (upper respiratory infection) J06.9 [facility] [address] [place], [place] [id number] 05/29/2024 Sabivadim Brady Obesity (BMI 30-39.9 ) E66.9 ; Encounter for weight management Z76.89 ; Iron deficiency anemia, unspecified iron deficiency anemia type D50.9 ; Frequent headaches R51.9 and Other hypotension I95.89 [facility] [address] [place], [place] [id number] 06/17/2024 Sabi Brady Symptomatic hypotens ion I95.9 [facility] [address] [place], [place] [id number] 08/28/2024 Sabi Brady Acute upper respirat ory infection J06.9 ; Encounter for weight management Z76.89 and BMI 29.0-29.9,adult Z68.29 [facility] [address] [place], [place] [id number] 09/17/2024 Sabivadim Brady BMI 33.0-33.9,adult Z68.33 and Encounter for weight management Z76.89 [facility] [address] [facility] [address] [place], [place] [id number] 11/27/2023 Jeovanny [place] [facility] [address] [facility] [address] [place], [place] [id number] 12/16/2023 Jeovanny [facility] [facility] [address] [facility] [address] [place] [id number] 12/19/2023 Jeovanny [place]point Obesity (BMI 30-39.9 ) E66.9 [facility] [address] [facility] [address] [place] [id number] 01/21/2024 Jeovanny [place]point Obesity (BMI 30-39.9 ) E66.9 [facility] [address] [place], [place] [id number] 01/29/2024 Sabi Crowdy [facility] [address] [place], [place] [id number] 02/28/2024 Sabi Crowdy [facility] [address] [place] [id number] 05/29/2024 Jeovanny [place]point [facility] [address] [place] [id number] 05/31/2024 Sabi Crowdy [facility] [address] [place] [id number] 07/14/2024 Sabi Crowdy [facility] [address] [place] [id number] 09/17/2024 Jeovanny [place]point [facility] [address] [place], [place] [id number] 01/23/2024 Sabi Crowdy Obesity (BMI 30-39.9 ) E66.9 [facility] [address] [place] [id number] 02/14/2024 Jeovanny [place]point Obesity (BMI 30-39.9 ) E66.9 [facility] [address] [place] [id number] 02/14/2024 Jeovanny [place]point [facility] [address] [place] [id number] 02/14/2024 Jeovanny [place] [facility] [address] [place] [id number] 07/23/2024 Jeovanny [place] [facility] [address] [place] [id number] 09/16/2024 Sabi Crowdy [facility] [address] [place] [id number] 09/16/2024 Jeovanny [place] [facility] [address] [place] [id number] 09/16/2024 Jeovanny [place]point Assessments Encounter Date Diagnosis (ICD Code) Assessment Notes Treatment Notes Treatment Clinical Notes Section Notes 11/21/2023 Seasonal allergies (ICD-10 - J30.2) 11/21/2023 Obesity (BMI 30-39.9) (ICD-10 - E66.9) 12/19/2023 Obesity (BMI 30-39.9) (ICD-10 - E66.9) 01/15/2024 Obesity (BMI 30-39.9) (ICD-10 - E66.9) Patient is stable on the 12.5mg of zepbound. Will refill. 01/15/2024 Acute URI (ICD-10 - J06.9) fluids, rest, supportive measures for fever/symptom relief 01/21/2024 Obesity (BMI 30-39.9) (ICD-10 - E66.9) 01/23/2024 Obesity (BMI 30-39.9) (ICD-10 - E66.9) 02/14/2024 Obesity (BMI 30-39.9) (ICD-10 - E66.9) 02/27/2024 Other fatigue (ICD-10 - R53.83) 02/27/2024 Encounter for weight management (ICD-10 - Z76.89) 04/13/2024 URI (upper respiratory infection) (ICD-10 - J06.9) fluids, rest, supportive measures for fever/symptom relief 04/13/2024 Hemorrhoids (ICD-10 - K64.9) keep clean; cold after stool; heat otherwise prn; try not to strain; Tucks prn 05/29/2024 Encounter for weight management (ICD-10 - Z76.89) 06/17/2024 Symptomatic hypotension (ICD-10 - I95.9) The hypotension is likely due to the weight loss and zepbound. Will stop the zepbound and monitor BP. Will increase fluids. 08/28/2024 Acute upper respiratory infection (ICD-10 - J06.9) 08/28/2024 Encounter for weight management (ICD-10 - Z76.89) 09/17/2024 BMI 33.0-33.9,adult (ICD-10 - Z68.33) 09/17/2024 Encounter for weight management (ICD-10 - Z76.89) 05/29/2024 Obesity (BMI 30-39.9) (ICD-10 - E66.9) Patient is at goal on her weight loss. She does not wish to lose anymore weight. Her BP has been low at times with the weight loss. She will need to stay on maintenance therapy but will need to back down to the 12.5mg so she does not continue to lose weight and is able to eat a bit more food. 05/29/2024 Iron deficiency anemia, unspecified iron deficiency anemia type (ICD-10 - D50.9) 08/28/2024 BMI 29.0-29.9,adult (ICD-10 - Z68.29) 02/27/2024 Hyperlipidemia (ICD-10 - E78.5) 02/27/2024 Anemia (ICD-10 - D64.9) 05/29/2024 Frequent headaches (ICD-10 - R51.9) BP is low. Will go home and hydrate and will check labs today. She will monitor her BP at home. 02/27/2024 Encounter for immunization (ICD-10 - Z23) 05/29/2024 Other hypotension (ICD-10 - I95.89) Plan Of Treatment Next Appt Details Provider Name:Sabi Bolden Foster mejia, 12/16/2024 09:15:00 AM, [address], [place], [place], [id number], Insurance Providers Payer Name Payer Address Payer Phone Subscriber Number Group Number Insured Name Patient Relationship to Insured Coverage Start Date Coverage End Date [facility] [address] [place] [address] [id number] KACY HOANG Self - patient is the insured Medical (General) History Medical History History ICD Code Hyperlipidemia Allergic Rhinitis Surgical History Surgery Date(Month/Year) Hospitalization History Reason Date(Month/Year) Child - [facility] 06/08/2022
== END 2024-11-03 23:59 | disposition home or self-care (01) ==
LOC: LAB.DROPOF 11-04 14:07
PROVIDERS: PCP Student in an Organized Health Care Education/Training Program; Visit Provider Student in an Organized Health Care Education/Training Program
DX: R50.9 Fever, unspecified (principal)
CPT/HCPCS: 87631